=== PATIENT | female | born 2005 | race Caucasian/White ===

== ENCOUNTER → 2025-05-02 15:00 | Outpatient (REF) | payer BC, SELFPAY | LOC: RAD 15:00 | PROVIDERS: ATTENDING PHYSICIAN Registered Nurse Women's Health Care, Ambulatory | DX: Z36.87 Encounter for antenatal screening for uncertain dates (principal) | CPT/HCPCS: 76801; 76817 ==

== ENCOUNTER → 2025-07-11 08:40 | Outpatient (REF) | payer BC, SELFPAY | LOC: PNTC 08:40 | PROVIDERS: ATTENDING PHYSICIAN Registered Nurse Women's Health Care, Ambulatory | DX: Z34.90 Encounter for supervision of normal pregnancy, unspecified, unspecified trimester (principal) | CPT/HCPCS: 76805 ==